=== PATIENT | male | born 1955 | race Caucasian/White ===

== ENCOUNTER → 2018-04-01 | Outpatient (CLI) | payer OTHER ==
[~2018-04-01] MED LIST: REGADENOSON 0.4 MG/5 ML DISP.SYRIN. IV ONE
--- NOTE | 2018-04-01 13:32 | PCVCIMAG ---
APPROVED REPORT Study performed: 04/01/2018 08:00:40 EXAM: Comprehensive 2D, Doppler, and color-flow Echocardiogram Patient Location: Echo lab Status: routine BSA: 2.01 HR: 75 bpmBP: 118/92 mmHg Rhythm: NSR Other Information Study Quality: Adequate Risk Factors: Cardiac Risk Factors: Hyperlipidemia Indications Dyspnea tobacco use 2D Dimensions IVSd: 9.87 (7-11mm) LVDd: 42.87 mm PWd: 10.28 (7-11mm)Ascending Ao: 36.92 (22-36mm) LVDs: 32.29 (25-40mm) Left Atrium: 34.63 (27-40mm) Aortic Root: 33.10 mm LV Single Plane 4CH: 54.63 % LV Single Plane 2CH: 57.23 % Biplane EF: 55.7 % Volumes Left Atrial Volume (Systole) Single Plane 4CH: 35.11 mLSingle Plane 2CH: 73.72 mL LA ESV Index: 27.00 mL/m2 Aortic Valve AoV Peak Antonino.: 1.28 m/s AO Peak Gr.: 6.56 mmHgLVOT Max P.25 mmHg LVOT Max V: 0.90 m/s Mitral Valve E/A Ratio: 0.9 MV Decel. Time: 207.56 ms MV E Max Antonino.: 0.50 m/s MV A Antonino.: 0.56 m/s IVRT: 131.49 ms Pulmonary Valve PV Peak Antonino.: 0.89 m/sPV Peak Gr.: 3.14 mmHg Pulmonary Vein P Vein S: 0.27 m/sP Vein A: 0.34 m/s P Vein D: 0.36 m/sP Vein A Dur.: 134.9 msec P Vein S/D Ratio: 0.75 Tricuspid Valve TR Peak Antonino.: 2.45 m/s TR Peak Gr.: 23.93 mmHg Left Ventricle The left ventricle is normal size. There is normal LV segmental wall motion. There is normal left ventricular wall thickness. Left ventricular systolic function is normal. The left ventricular ejection fraction is within the normal range. LVEF is 55%. Grade I - abnormal relaxation pattern. Right Ventricle The right ventricle is normal size. The right ventricular systolic function is normal. Atria The left atrium size is normal. The right atrium size is normal. Aortic Valve The aortic valve is normal in structure. No aortic regurgitation is present. There is no aortic valvular stenosis. Mitral Valve The mitral valve is normal in structure. Trace mitral regurgitation. No evidence of mitral valve stenosis. Tricuspid Valve The tricuspid valve is normal in structure. Trace tricuspid regurgitation with PAP of 31 mmHg. Pulmonic Valve The pulmonary valve is normal in structure. Mild pulmonic regurgitation. Great Vessels The aortic root is normal in size. IVC is normal in size and collapses >50% with inspiration. Pericardium There is no pericardial effusion. There is no pleural effusion. <Conclusion> The left ventricle is normal size. LVEF is 55%. The aortic valve is normal in structure. The mitral valve is normal in structure. Trace mitral regurgitation. The tricuspid valve is normal in structure. Trace tricuspid regurgitation with PAP of 31 mmHg. The pulmonary valve is normal in structure. Mild pulmonic regurgitation. There is no pericardial effusion. There is no pleural effusion.
--- NOTE | 2018-04-02 07:50 | PCVCIMAG ---
APPROVED REPORT Imaging Protocol: Rest Tc-99m/Stress Tc-99m 1 day Study performed: 04/01/2018 09:11:51 Indication: Fatigue, [place] Patient Location: Out-Patient Stress Nurse: Diane Marie RN NM Tech:Chevy Duggan NMLIZABETHB Ht: 5 ft 9 in Wt: 185 lbs BSA: 2.00 m2 HR: 75 bpm BP: 133/91 mmHg BMI: 27.3 Rhythm: SR Medical History Medical History: Age, Hyperlipidemia, Smoker Medications: No Cardiac Meds Allergies: No known drug allergies Pretest Chest Pain Characteristics: No chest pain Resting Data Rest SPECT myocardial perfusion imaging was performed in supine position 45 minutes following the intravenous injection of 11.5 mCi of Tc-99m Sestamibi. Time of rest injection: 829 Date: 04/01/2018 Administration Route: IV Administration Site: Left Hand Pharmacologic Stress Pharmacologic stress test was performed by injecting Regadenoson 0.4 mg IV push over 10-15 seconds immediately followed by the intravenous injection of 35.8 mCi of Tc-99m Sestamibi. Time of stress injection: 949 Date: 04/01/2018 Administration Route: IV Administration Site: Left Hand Gated Stress SPECT was performed 45 minutes after stress injection. The images were gated to evaluate regional wall motion and calculate left ventricular ejection fraction. Stress Test Details Stress Test: Pharmacologic stress was paired with low level exercise. Reason for pharmacologic stress test: Herniated Disc. HRMax Heart Rate (APMHR): 160 bpm Resting HR: 75 bpmTarget HR (85% APMHR): 136 bpm Max HR Achieved: 109 bpm % of APMHR: 68 Recovery HR: 92 bpm BP Resting BP: 133/91 mmHg Recovery BP: 135/85 mmHg ECG Resting ECG: SR Stress ECG: ST Arrhythmia: None Recovery ECG: SR Clinical Reason for Termination: Completed protocol Stress Symptoms: Chest Tightness, Dyspnea, Nausea, Headache Symptoms resolved with caffeine. Stress ECG Conclusion 1. Adequate response to intravenous Lexiscan 2. Inadequate heart rate for ECG diagnosis Study Data Post stress, the left ventricular ejection was 61%.. SSS: 0 SRS: 0 SDS: 0 TID = 1.00. Perfusion There is a medium area of moderately reduced uptake in the entire segment of the inferior wall which is seen on the stress images as well as the resting images. This area thickens and moves normally and is most consistent with attenuation artifact. Wall Motion Normal left ventricular wall motion. Nuclear Conclusion ECG Findings: non-diagnostic Clinical Findings: non-diagnostic chest discomfort with pharmacologic agents R common Nuclear Findings: negative for ischemia Exercise Capacity: not assessed Left Ventricular Function: normal 1. Low risk study Interpreted by: Trini Holloway MD Electronically Approved: 04/02/2018 07:48:58 <Conclusion> 1. Adequate response to intravenous Lexiscan 2. Inadequate heart rate for ECG diagnosis
== END | disposition home or self-care (01) ==
LOC: PCVCIMAG 08:04
PROVIDERS: ATTEND Internal Medicine
DX: I37.1 Nonrheumatic pulmonary valve insufficiency (principal); R06.09 Other forms of dyspnea; F17.200 Nicotine dependence, unspecified, uncomplicated; Z82.49 Family history of ischemic heart disease and other diseases of the circulatory system; R53.83 Other fatigue; E78.5 Hyperlipidemia, unspecified
CPT/HCPCS: 78452; 93017; 93306; A9500; J2785